=== PATIENT | male | born 1950 | race Caucasian/White ===

== ENCOUNTER → 2020-01-21 | Outpatient (CLI) | payer MEDICARE, BC ==
--- NOTE | 2020-01-21 17:08 | Diagnostic Imaging Report ---
Indication: Abdominal pain, left-sided inguinal hernia Technique: Spiral acquisitions obtained through the abdomen and pelvis. Patient given oral contrast. No IV contrast utilized, per patient preference.. Multiplanar reconstructions were generated. Total dose length product 424 mGycm. CTDIvol(s) 7 mGy. Dose reduction achieved using automated exposure control Comparison: None Findings: There is a small fat-containing direct right inguinal hernia. There is questionably a surgical scar in this area. No left inguinal hernia is demonstrated. There is a tiny fat-containing umbilical hernia. The appendix is normal. No evidence of diverticulosis or diverticulitis. Ingested contrast has traversed the entirety of the small bowel, reaches the ascending colon. No small bowel distention or small bowel wall thickening. No free or loculated intraperitoneal gas or fluid is evident. There is equivocal minimal wall thickening of the distal esophagus. The stomach is normal. Lack of IV contrast limits assessment of the solid organs. The liver, gallbladder, bile ducts, pancreas, spleen, adrenals are unremarkable. Both kidneys demonstrate subcentimeter low-attenuation lesions which are too small to characterize. No renal or ureteral calculi, hydronephrosis, or hydroureter demonstrated. The prostate is slightly prominent, contains some calcifications. The bladder is unremarkable. No pelvic mass or adenopathy. No retroperitoneal or mesenteric mass or adenopathy. The included lung bases demonstrate some scarring or atelectasis bilaterally. There are 2 small adjacent nodules in the left lower lobe, one measuring 4 mm diameter, the other measuring 3 mm diameter. The bones are unremarkable. Impression: No acute abnormality Equivocal minimal wall thickening of the distal esophagus, could indicate esophagitis if real. Correlate with clinical findings 2 small left lung nodules. If there are risk factors for lung carcinoma, recommend follow-up in 6-12 months. If no significant risk factors, no further follow-up necessary Subcentimeter low-attenuation renal lesions, too small to characterize, most likely benign simple cysts. No further follow-up necessary Incidental findings of small fat-containing right inguinal hernia, tiny fat-containing umbilical hernia The CT scanner at [facility] is accredited by the [employer] and the scans are performed using protocols designed to limit radiation exposure to as low as reasonably achievable to attain images of sufficient resolution adequate for diagnostic evaluation.
== END | disposition home or self-care (01) ==
LOC: CAT 08:52
DX: R10.9 Unspecified abdominal pain (principal); K40.90 Unilateral inguinal hernia, without obstruction or gangrene, not specified as recurrent
CPT/HCPCS: 74176